=== PATIENT | female | born 1960 | race Caucasian/White ===

== ENCOUNTER 2022-09-02 14:56 | Emergency (ER) | payer BC, SELFPAY ==
[2022-09-02 16:10] VITALS: BP 150/90; PULSE 84; RESP 18; TEMP 36.8; O2SAT 99
--- NOTE | 2022-09-02 16:11 | PC.NURSE ---
PATIENT REFUSED AUTOMATIC BLOOD PRESSURE AND WANTS THE NURSE TO DO A MANUAL CHECK
--- NOTE | 2022-09-02 16:57 | ED.URI ---
HPI - URI/Sore Throat General Chief Complaint: Upper Respiratory Infection Stated Complaint: cough, congestion Time Seen by Provider: 09/02/22 17:00 Source: patient Mode of arrival: ambulatory Limitations: no limitations History of Present Illness HPI Narrative: Patient presents today with a one-week history of cough, congestion, chest congestion, postnasal drip, body aches with wheezing last night and mild shortness of breath. Denies fever. She has been taking Robitussin with mild relief. Patient takes Enbrel for a autoimmune disease. Related Data Home Medications Medication Instructions Recorded Confirmed ergocalciferol (vitamin D2) 1,250 09/02/22 mcg (50,000 unit) capsule etanercept 50 mg/mL (1 mL) mg subcut 09/02/22 subcutaneous syringe (Enbrel) levothyroxine 88 mcg capsule mcg PO 09/02/22 (Tirosint) ramipril 10 mg capsule mg 09/02/22 Allergies Allergy/AdvReac Type Severity Reaction Status Date / Time acetaminophen [Dristan] Allergy Unknown n/a Verified 09/02/22 17:08 cephalexin Allergy Unknown Skin Verified 09/02/22 17:08 Reaction chlorpheniramine [Dristan] Allergy Unknown n/a Verified 09/02/22 17:08 codeine Allergy Unknown n/a Verified 09/02/22 17:08 doxycycline Allergy Unknown Nausea Verified 09/02/22 17:08 iodine Allergy Unknown n/a Verified 09/02/22 17:08 nickel Allergy Unknown Unknown Verified 09/02/22 17:08 oxymetazoline Allergy Unknown n/a Verified 09/02/22 17:08 pheniramine [Dristan] Allergy Unknown n/a Verified 09/02/22 17:08 phenylephrine [Dristan] Allergy Unknown n/a Verified 09/02/22 17:08 pseudoephedrine [Dristan] Allergy Unknown n/a Verified 09/02/22 17:08 sulfamethizole Allergy Unknown Skin Verified 09/02/22 17:08 Reaction THYMURACIL Allergy Mild Unknown Uncoded 09/02/22 17:08 Review of Systems Review of Systems: CONSTITUTIONAL: Denies fever, chills, or sweats.+ Body aches EYES: Denies visual changes, redness, or discharge. ENT: Denies rhinorrhea, congestion, sore throat, or otalgia.+ postnasal drip CARDIOVASCULAR: Denies chest pain, palpitations, or edema. RESPIRATORY: + cough, wheezing, chest congestion, mild shortness of breath GASTROINTESTINAL: Denies abdominal pain, nausea, vomiting, or diarrhea. GENITOURINARY: Denies dysuria or hematuria. SKIN: Denies rash, itching, or wounds. MUSCULOSKELETAL: Denies back pain, joint pain, or myalgia. NEUROLOGIC: Denies headache, numbness, tingling, or weakness. PSYCH: Denies depression or anxiety. PMFSH Family History Family History Mother Family history of glaucoma Family history of cardiovascular disease Cerebrovascular accident Family history of type 2 diabetes mellitus Sibling Family history of glaucoma Family history of malignant neoplasm Family history of type 2 diabetes mellitus Father Family history of gastrointestinal disorder Malignant neoplasm of prostate Social History Social History Smoking status: Never smoker Alcohol intake: current Comments At time of signature, I have reviewed and agree with nursing past medical, surgical, social and family history unless otherwise noted. Please see nursing chart for further information. There is no relevant family history pertinent to the presenting complaint Exam Narrative: GENERAL: Well-appearing, well-nourished, and in no acute distress. HEAD: Normocephalic, atraumatic. EYES: EOMI. No redness or drainage. Conjunctivae normal. ENT: Mucous membranes pink and moist. Nares clear. bilateral frontal sinus tenderness. No rhinorrhea. TMs normal bilaterally. Throat normal. Uvula midline. NECK: Normal AROM. Supple. No lymphadenopathy. CHEST: No respiratory distress. Clear to auscultation. HEART: Regular rate and rhythm. No murmur appreciated. Normal peripheral pulses. EXTREMITIES: Normal range of motion. No edema. SKIN: Warm, dry
== END 2022-09-02 17:20 | disposition home or self-care (01) ==
PROVIDERS: Emergency Provider Nurse Practitioner; PCP Family Medicine
DX: J40 Bronchitis, not specified as acute or chronic (principal); J01.10 Acute frontal sinusitis, unspecified; M06.1 Adult-onset Still's disease
CPT/HCPCS: 99213; G0463

== ENCOUNTER 2025-02-16 09:44 | Outpatient (CLI) | payer OTHER, SELFPAY ==
--- OUTSIDE RECORDS SUMMARY | 2025-02-16 09:55 | XMS_ITS | Clinical Summary ---
Author Organization [facility] Address [facility] [place] [address] Care Team Providers Care College Service Officer Name Role Phone Alberto Og MD Primary Care Provider [phone] Allergies Active Allergy Reactions Criticality Noted Date Comments Magnesium Stearate Angioedema 10/19/2024 Medications TIROSINT 100 MCG capsule 08/13/2024 Active ramipril (ALTACE) 10 MG capsule 09/19/2024 Active azithromycin (ZITHROMAX) 250 MG tabletIndicatio ns:Bronchitis Take 2 tablets by mouth on day one then 1 daily for four days. 6 tablet 10/19/2024 Active albuterol sulfate HFA 108 (90 Base) MCG/ACT inhalerIndicati ons:Bronchitis, Wheezing Inhale 2 puffs into the lungs every 6 (six) hours as needed for Wheezing. 51 g 10/19/2024 Active Active Problems No known active problems Social History Tobacco Use Types Packs/Day Years Used Date Smoking Tobacco: Never Smokeless Tobacco: Never Tobacco Cessation:Counseling Given: Yes Comments Unknown Sex and Gender Information Value Date Recorded Sex Assigned at Not on file Legal Sex Female 5:21 PM CDT Gender Identity Not on file Sexual Orientation Not on file Last Filed Vital Signs Vital Sign Reading Time Taken Comments Blood Pressure 138/89 10/19/2024 2:39 PM [employer] Pulse 103 10/19/2024 2:39 PM [employer] Temperature 36.4 C (97.5 F) 10/19/2024 2:39 PM [employer] Respiratory Rate 19 10/19/2024 2:39 PM [employer] Oxygen Saturation 96% 10/19/2024 2:39 PM [employer] Inhaled Oxygen Concentration - - Weight 87.1 kg (192 lb) 10/19/2024 2:39 PM [employer] Height 165.1 cm (5' 5 ) 10/19/2024 2:39 PM [employer] Body Mass Index 31.95 10/19/2024 2:39 PM [employer] Plan of Treatment Health Maintenance Due Date Last Done Comments Colorectal Cancer Screening Colonoscopy (10 Years) 1958 Hepatitis C 1976 DTaP, Tdap and Td Vaccines ( 1 - Tdap) 1977 Mammogram Screening 1998 Pneumococcal Vaccine: 50+ Ye ars (1 of 1 - PCV) 2008 Zoster Vaccines (1 of 2) 2008 Annual Medicare Wellness Visit 2023 Dexa Scan (General) 2023 COVID-19 Vaccine (1 - 2023-2 5 season) 2024 PHQ-2 (Physician [place]) 10/07/2024 RSV Immunization or 60+ Years (1 - 1-dose 75+ series) 2033 Meningococcal B Vaccine Aged Out No l onger eligible based on patient's age to complete this topic Meningococcal Vaccine Aged Out No mason joaquin eligible based on patient's age to complete this topic RSV Immunizations Under 20 Months Aged Out No longer eligible based on patient's age to complete this topic Insurance [employer] Care Teams College Service Officer Relationship Specialty Start Date End Date Alberto Og MD [facility] [facility] [address] [place] [address] [place] [id number] PCP - General FAMILY PRACTICE 10/19/24
[2025-02-16 13:11] LABS: Basophils Absolute Auto 0.1 K/mm3 (0.0-0.1); Eosinophils Absolute Auto 0.2 K/mm3 (0-0.3); Hemoglobin 14.3 g/dL (12.0-15.0); Immature Granulocyte Absolute 0.03 K/mm3 (0.00-0.031); Immature Granulocyte Percent A 0.5 % (0-0.5); Lymphocytes Absolute Auto 1.84 K/mm3 (0.9-3.2); Mean Corpuscular HGB Conc 31.1 g/dl (32-36); Mean Corpuscular Hemoglobin 28.4 pg (26-34); Mean Corpuscular Volume 91.3 fl (80-100); Mean Platelet Volume 11.2 fl (7.4-10.4); Monocytes Absolute Auto 0.4 K/mm3 (0.1-0.6); Monocytes Percent Auto 7.2 % (2.6-8.5); Neutrophils Absolute Auto 3.4 K/mm3 (1.3-6.7); Neutrophils Percent Auto 57.3 % (45.5-73.1); Platelet Count Result 305 k/mm3 (150-375); Red Blood Count 5.04 M/mm3 (4.2-5.4); Red Cell Distribution Width 13.2 % (11.5-14.5); White Blood Count 5.9 K/mm3 (4.5-10.0)
[2025-02-16 14:03] LABS: Alanine Aminotransferase 28 U/L (6-35); Albumin Level 4.5 g/dL (3.5-5.1); Alkaline Phosphatase 99 U/L (38-126); Anion Gap 8 mmol/L (4-12); Aspartate Amino Transferase 39 U/L (14-36); Bilirubin,Total 0.7 mg/dL (0.2-1.3); Blood Urea Nitrogen 14 mg/dL (7-17); CRP 0.8 mg/dL (<1.0); Calcium 9.1 mg/dL (8.4-10.2); Carbon Dioxide 26 mmol/L (22-30); Chloride 106 mmol/L (98-107); Estimated Glomerular Filt Rate > 60; Glucose 94 mg/dL (65-110); Potassium 4.2 mmol/L (3.4-5.0); Sodium 140 mmol/L (137-145)
[2025-02-16 14:12] LABS: T4 Thyroxine 8.94 ug/dL (5.53-11.0)
[2025-02-16 14:32] LABS: Iron 81 ug/dL (37-170)
[2025-02-16 14:53] LABS: Percent Iron Saturation 27 % (20-50)
== END 2025-02-16 09:45 | disposition home or self-care (01) ==
PROVIDERS: PCP Family Medicine; Visit Provider Nurse Practitioner Family
DX: M79.10 Myalgia, unspecified site (principal); D64.9 Anemia, unspecified
CPT/HCPCS: 36415; 80053; 82728; 83540; 83550; 84436; 84443; 85025; 86140